=== PATIENT | male | born 1970 | race Caucasian/White ===

== ENCOUNTER 2021-04-01 21:35 | Emergency (ER) | payer BC ==
[~2021-04-01] VITALS: Ht 182.9 cm; Wt 111.1 kg
[2021-04-01] MEDS ORDERED: ASPIRIN81 MG PO (21:46)
[2021-04-01] MEDS ORDERED: MULTI VITAMIN1 EACH PO (21:47)
== END 2021-04-02 01:11 | disposition home or self-care (01) ==
LOC: ED 21:35
DX: I80.02 Phlebitis and thrombophlebitis of superficial vessels of left lower extremity (principal); Z79.82 Long term (current) use of aspirin; Z79.899 Other long term (current) drug therapy
CPT/HCPCS: 93971; 99283-25; A9270

== ENCOUNTER 2021-11-16 06:25 | Day surgery (SDC) | payer BC ==
[~2021-11-16] VITALS: Ht 185.4 cm; Wt 117.7 kg
[~2021-11-16 06:25] MED LIST: ASPIRIN81 MG PO; MAGNESIUM250 M1 PO; MULTI VITAMIN1 EACH PO; OMEPRAZOLE20 MG PO; VITAMIN B125000 MCG PO; VITAMIN D3125 MC3 PO; VITAMIN K240 MCG PO
[2021-11-16] MEDS ORDERED: OMEGA 3 1,0001 EACH PO (06:48)
--- NOTE | 2021-11-16 07:57 | NUR ---
11/16/21 Ryan7 Zahra Drew 0753-PT TO PACU IN LL POSITION. EYES CLOSED. PT RESPONDS TO VERBAL AND TACTILE STIMULI. PT DENIES PAIN AND FALLS QUICKLY BACK TO SLEEP. BREATHING EASY AND UNLABORED. SPO2 >95% ON 2L O2 VIA NC. PT ENCOURAGED TO PASS GAS.
--- NOTE | 2021-11-16 10:36 | OR ---
[facility] [address], [place] [address] Signed DATE OF OPERATION: 11/16/2021 SURGEON: Monique Peterson MD PREOPERATIVE DIAGNOSES: 1. Screening. 2. External hemorrhoids. POSTOPERATIVE DIAGNOSES: 1. Minimal internal and external hemorrhoids. 2. Long redundant colon. PROCEDURE: Colonoscopy biopsy. ESTIMATED BLOOD LOSS: None. INDICATIONS: Pawan is a 51-year-old gentleman, asked to see me for his initial screening colonoscopy. He has no lower GI complaints. There is no family history of colon cancer or polyps. He does describe external hemorrhoids. In the office, I gave him a pamphlet on colonoscopy. We reviewed the test together. There is risk including, but not limited to gas bloating, crampy abdominal pain, bleeding, perforation requiring surgery, and missed diagnosis. We also reviewed the need for IV conscious sedation. He had expressed understanding and wished to proceed. PROCEDURE NOTE: Pawan was taken into our endoscopy suite and placed in the left lateral decubitus position. He was given a total of 6 mg of Versed and 150 mcg of fentanyl to cover the case. A digital rectal exam was performed and this showed minimal external hemorrhoids. He has good sphincter tone. He is a large man and I can barely touch the bottom of his prostate. The adult colonoscope had been introduced and advanced under direct visualization of the camera. He did take some additional sedation and abdominal compression as we advance the scope. It took just a minute to get around the hepatic flexure and down into the cecum itself. His prep was quite excellent. The scope was then slowly withdrawn. We took pictures throughout for photodocumentation. There were no polyps or diverticula noted. He has a long redundant colon. The rectum was unremarkable. Upon retroflexion of the scope, he has very minimal internal hemorrhoid tissue. After this, the gas was suctioned out and colonoscope removed. Overall, Pawan Electronically Signed By: MONIQUE PETERSON MD 11/16/21 1036 PATIENT NAME: PAWAN MURGUIA OPERATIVE REPORT DATE OF : 72 REPORT #: [id number] PHYSICIAN: MONIQUE PETERSON MD PCP: EBONI KHAN MD REPORT IS CONFIDENTIAL AND NOT TO BE RELEASED WITHOUT AUTHORIZATION [facility] [address], [place] [address] Signed tolerated the procedure well. RECOMMENDATIONS: Pawan can return in 10 years for repeat colonoscopy. He may or may not need monitored anesthesia care with propofol in the future. Monique Peterson MD ALB/MODL /[id number] cc: MD oMnique Thomas MD Copies: EBONI KHAN DMD, ANDREW L MD ~ Electronically Signed By: MONIQUE PETERSON MD 11/16/21 1036 PATIENT NAME: PAWAN MURGUIA OPERATIVE REPORT DATE OF : 72 REPORT #: [id number] PHYSICIAN: MONIQUE PETERSON MD PCP: EBONI KHAN MD REPORT IS CONFIDENTIAL AND NOT TO BE RELEASED WITHOUT AUTHORIZATION
--- NOTE | 2021-11-16 10:43 | NUR ---
PT ALERT, ORIENTED AND SUPPORTED BY HIS EDUARDO. PT HERE FOR FIRST SCOPE-ALL QUESTIONS ASKED ANSWERED. GOOD VISIT, WILL REMAIN FOR DC. PT REQUESTED PRAYER, WILL FOLLOW NEEDED
== END 2021-11-16 08:47 | disposition home or self-care (01) ==
LOC: OPS 06:25 → DS 06:25 → OPS 07:30
PROVIDERS: ATTEND Colon & Rectal Surgery
DX: Z12.11 Encounter for screening for malignant neoplasm of colon (principal); Q43.8 Other specified congenital malformations of intestine; K64.4 Residual hemorrhoidal skin tags; K64.8 Other hemorrhoids; K21.9 Gastro-esophageal reflux disease without esophagitis; E66.9 Obesity, unspecified; E78.5 Hyperlipidemia, unspecified; Z79.82 Long term (current) use of aspirin; Z79.899 Other long term (current) drug therapy; Z20.822 Contact with and (suspected) exposure to COVID-19
CPT/HCPCS: G0121; 99153; G0500; J2250; J3010; J7121

== ENCOUNTER 2025-02-17 05:45 | Day surgery (SDC) | payer BC ==
[2025-02-02 16:46] VITALS: BP 129/86
[~2025-02-17] VITALS: Ht 185.4 cm; Wt 111.4 kg
--- NOTE | ~2025-02-17 | OR ---
[facility] [address] [place], [place] [address] Draft DATE OF OPERATION: 02/17/2025 SURGEON: Holden Epps DPM PREOPERATIVE DIAGNOSES: 1. Hammertoe, left second digit. 2. Osteophyte, left fifth digit. 3. Tendon contracture, left foot. TURF MANAGER SURGEON: Sarah White DPM. ANESTHESIA: IV general with local block left foot. HEALTHCARE CUSTOMER SERVICE: Allison Leahy CRNA SPECIMEN TO PATHOLOGY: None. PROCEDURES: 1. Hammertoe correction with proximal interphalangeal joint fusion, left second digit. 2. Osteophyte excision, left fifth digit. 3. Extensor tenotomy of left foot, extensor tendon for left second digit. DESCRIPTION OF PROCEDURE: The patient was brought to the operating room and placed on the table in the supine position. Anesthesia Department administered IV sedation, after which a local block was given to the left foot using a total of 12 mL 1:1 mixture, 2% lidocaine plain and 0.5% ropivacaine plain. The left leg and foot was then prepped and draped in the usual sterile manner and an Esmarch was used for hemostasis. Attention was initially directed to the dorsum of the left foot. The extensor tendon was extremely tight for left second digit. Therefore, a tenotomy was necessary for adequate correction. This was performed via a small incision next to the tendon about 3 cm proximal to the MTPJ, then a 64 blade was used to release the tendon. Attention was then directed to the dorsal left second digit PIPJ where a transverse elliptical incision was made with the skin ellipse removed over the joint. The fascia PATIENT NAME: MARIELOS MURGUIA OPERATIVE REPORT DATE OF : 72 REPORT #: [id number] PHYSICIAN: HOLDEN EPPS DPM PCP: JERRY CASTRO PAC REPORT IS CONFIDENTIAL AND NOT TO BE RELEASED WITHOUT AUTHORIZATION [facility] [address] [place], [place] [address] Draft and extensor tendon was exposed. A transverse incision was made through the tendon and joint capsule to open the joint, then reflected proximally to expose the head of the proximal phalanx, which was then resected using power instrumentation. At this time, attention was directed to the base of the intermediate phalanx and power instrumentation then used to resect the cartilage and a thin layer of bone from the base of the intermediate phalanx exposing raw bone for fusion at this site. A hole was then drilled into the proximal phalanx longitudinally and into the intermediate phalanx longitudinally for placement of the implant, the implant was then placed and the toe positioned securing the implant. The surgical site was then irrigated with normal saline. Then, the extensor tendon and joint capsule closed over the fusion site using 4-0 Vicryl. The skin then closed using 5-0 nylon monofilament suture. Attention then directed to the left fifth digit where a small corn lesion was present adjacent to the medial aspect of the toenail. A small incision 1 cm in length made directly over the hyperkeratotic lesion deep to bone. Then, soft tissues were reflected dorsally and plantarly to expose the bony prominence at this site, which was then resected using hand instrumentation. The surgical site was then irrigated with normal saline and closed using 5-0 nylon monofilament suture. The tenotomy site also closed with 5-0 nylon monofilament suture. Dressings applied consisting of Adaptic, Betadine-soaked gauze, Flexicon, and dry gauze with Coban to provide mild compression as well as to splint the position to the second digit. INTRAOPERATIVE COMPLICATIONS: None. ESTIMATED BLOOD LOSS: Less than 5 mL. Holden Epps DPM DFB/MODL /[id number] PATIENT NAME: MARIELOS MURGUIA OPERATIVE REPORT DATE OF : 72 REPORT #: [id number] PHYSICIAN: HOLDEN EPPS DPM PCP: JERRY CASTRO PAC REPORT IS CONFIDENTIAL AND NOT TO BE RELEASED WITHOUT AUTHORIZATION [address] [place] [address] Draft Copies: ~ PATIENT NAME: MARIELOS MURGUIA OPERATIVE REPORT DATE OF : 72 REPORT #: [id number] PHYSICIAN: HOLDEN EPPS DPM PCP: JERRY CASTRO PAC REPORT IS CONFIDENTIAL AND NOT TO BE RELEASED WITHOUT AUTHORIZATION
[~2025-02-17 05:45] MED LIST changes: +COD LIVER OIL1 EAC2 PO; +ELIQUIS5 MG PO; +KLOR-CON 88 MEQ PO; +LACTATED RINGER'S 1,000 ML IV SCH; +MOTRIN IB200 MG PO; +OMEGA 3 1,0001 EACH PO; +OMEGA 3 FISH O1 EACH PO; +PERCOCET 7.5-31 EACH PO; +TYLENOL EXTRA500 MG PO
[2025-02-17 06:00] VITALS: BP 166/70
[2025-02-17] MEDS ORDERED: ZITHROMAX250 MG PO (06:03)
[2025-02-17] MEDS ORDERED: DEXAMETHASONE SOD PHOS 4 MG/ML VIAL ONE (06:26)
[2025-02-17] MEDS ORDERED: Ropivacaine HCl 0.5% 30 ML VIAL ONE (06:27)
[2025-02-17] MEDS ORDERED: LIDOCAINE HCL 2% 20 ML MDV ONE (06:27)
[2025-02-17] MEDS ORDERED: MIDAZOLAM HCL 2 MG/2 ML VIAL ONE (06:58)
[2025-02-17] MEDS ORDERED: LIDOCAINE HCL 1% 5 ML SDV INJ ONE (07:00)
[2025-02-17] MEDS ORDERED: IBLOOD GLUCOSE TEST STRIP 1 EA TEST VI PRN (07:00)
[2025-02-17] MEDS ORDERED: CEFAZOLIN SODIUM 1 GM/10 ML SYR IV SCH (07:00)
--- NOTE | 2025-02-17 07:16 | NUR ---
PT NOT AVAILABLE FOR VISIT. PROVIDED PRAYER.
[2025-02-17] MEDS ORDERED: GLYCOPYRROLATE 1 MG/5 ML MDV ONE (07:34)
[2025-02-17] MEDS ORDERED: PHENYLEPHRINE HCL 10 MG/ML VIAL ONE (07:34)
[2025-02-17] MEDS ORDERED: LIDOCAINE HCL 4% 5 ML AMP ONE (07:34)
--- NOTE | 2025-02-17 08:46 | NUR ---
02/17/25 0846 Jyoti Myers 0809-PT ARRIVES TO PACU, VIA STRETCHER, PT NOT RESPONISVE TO NOXIOUS STIMULI, NPA IN PLACE, RR EVEN AND UNLABORED. PT'S BP LOW, ANESTHESIA AWARE AND AT BEDSIDE, ALL OTHER VSS ON 10L VIA MASK. PT'S LT FOOT ELEVATED ON PILLOW AND ICE PACK APPLIED. 0818-PT GIVEN IV MEDICATION FOR LOW BP BY ANESTHESIA, BP IMPROVED. 0835-VENDING SERVICE TECHNICIAN AT BEDSIDE FOR POST OP X-RAY OF LT FOOT. 0838-PT RESPONSIVE TO TACTILE STIMULI AND AWAKENS, NPA REMOVED. HOB RAISED PER PT REQUEST. PT TITRATED TO RA, VS REMAIN STABLE. PT DENIES PAIN OR NAUSEA, FALLS BACK TO SLEEP EASILY, RR EVEN AND UNLABORED.
[2025-02-17 09:19] VITALS: BP 100/64
== END 2025-02-17 09:40 | disposition home or self-care (01) ==
LOC: DS 05:45
PROVIDERS: ATTEND Podiatrist Foot Surgery
PROC: 0LNW0ZZ Release Left Foot Tendon, Open Approach (ICD-10-PCS; principal; 2025-02-17 07:00)
PROC: 0YBN0ZZ Excision of Left Foot, Open Approach (ICD-10-PCS; 2025-02-17 07:00)
DX: M20.42 Other hammer toe(s) (acquired), left foot (principal); M25.775 Osteophyte, left foot; M62.472 Contracture of muscle, left ankle and foot; F17.210 Nicotine dependence, cigarettes, uncomplicated; Z86.718 Personal history of other venous thrombosis and embolism; Z79.01 Long term (current) use of anticoagulants
CPT/HCPCS: 73630; J0690; J1100; J2250; J2371; J2704; J2795; J7121

== ENCOUNTER 2025-05-19 06:55 | Day surgery (SDC) | payer BC ==
[~2025-05-19] VITALS: Ht 182.9 cm; Wt 102.0 kg
--- NOTE | ~2025-05-19 | OR ---
[facility] [address] [place], [place] [address] Draft DATE OF OPERATION: 05/19/2025 SURGEON: Holden Epps DPM PREOPERATIVE DIAGNOSES: Hammertoe contracture, right 2nd and 4th digits; tendon contracture, right 2nd and 4th digits; and plantar fascia fibromatosis, bilateral foot. ACTING PROFESSOR SURGEON: Sarah White DPM. ANESTHESIA: IV general with local block, right foot. SKIN FITTER: Suhas Gutierrez. SPECIMEN TO PATHOLOGY: None. PROCEDURES: 1. Hammertoe correction, right 2nd and 4th digits. 2. Tendon release, dorsal right foot, two sites. 3. Plantar fibroma injection, bilateral foot. DESCRIPTION OF PROCEDURE: The patient was brought to the operating room and placed on the table in the supine position. Anesthesia Department administered IV sedation, after which a local block was given to the right foot using a total of 7 mL of 1:1 mixture, 2% lidocaine plain and 0.5% ropivacaine plain. At this time, injection was also given to the foot bilateral for the plantar fibroma lesions, three different sites, right foot with a total of 1.5 mL and one site of plantar left foot with a total of 0.5 mL of Kenalog 40. The right leg and foot was then prepped and draped in the usual sterile manner and an Esmarch was used for hemostasis. Attention was initially directed to the dorsum of the right foot, the extensor tendons to the right 2nd and 4th toes were noted to be extremely tight and contributing to the hammertoe deformities. A tendon release was performed for the extensor digitorum longus tendon traveling to the 2nd and 4th toes at a level about 2 cm proximal to the MTPJ for PATIENT NAME: MARIELOS MURGUIA OPERATIVE REPORT DATE OF : 72 REPORT #: [id number] PHYSICIAN: HOLDEN EPPS DPM PCP: JERRY CASTRO PAC REPORT IS CONFIDENTIAL AND NOT TO BE RELEASED WITHOUT AUTHORIZATION [facility] [address] [place], [place] [address] Draft each tendon slip. Attention was then directed to the dorsal PIPJ for the right 2nd digit where a transverse elliptical incision was made over the PIPJ. The ellipse of skin was removed and the incision deepened to open the joint, transecting the extensor tendon and the joint capsule. Soft tissues then reflected proximally to expose the head of the proximal phalanx, which was then resected using power instrumentation. The power instrumentation also used to remove the cartilaginous surface to the base of the intermediate phalanx of the hammertoe implant. Instrumentation was then used to create the hole within the proximal phalanx and intermediate phalanx to accept the implant. Implant was then placed and secured providing adequate alignment and stability to the toe. The surgical site was irrigated with copious amounts of normal saline. The extensor tendon then reapproximated with 4-0 Vicryl and skin closed using 5-0 nylon monofilament suture. Hammertoe correction for the right 4th digit performed in an identical manner without additions or deletions. The plantar fibroma injections were performed with the preoperative injection and therefore was already accomplished. At this time, intraoperative fluoroscopy was used to check the position and alignment to the toes and the implant, the implant was noted to be at an angle within the proximal phalanx and appeared to be exiting the lateral cortex of the proximal phalanx. However, due to difficulty in removing the implant as well as the fact that the alignment and position to the toe as well as stability to the toe appeared to be adequate, it was deemed appropriate at this point to leave the implant as is. ESTIMATED BLOOD LOSS: Less than 5 mL. Holden Epps DPM DFB/MODL /[id number] PATIENT NAME: MARIELOS MURGUIA OPERATIVE REPORT DATE OF : 72 REPORT #: [id number] PHYSICIAN: HOLDEN EPPS DPM PCP: JERRY CASTRO PAC REPORT IS CONFIDENTIAL AND NOT TO BE RELEASED WITHOUT AUTHORIZATION [facility] [address] [place] [address] [place] [address] Draft Copies: ~ PATIENT NAME: MARIELOS MURGUIA OPERATIVE REPORT DATE OF : 72 REPORT #: [id number] PHYSICIAN: HOLDEN EPPS DPM PCP: JERRY CASTRO PAC REPORT IS CONFIDENTIAL AND NOT TO BE RELEASED WITHOUT AUTHORIZATION
[~2025-05-19 06:55] MED LIST changes: +DEXAMETHASONE SOD PHOS 4 MG/ML VIAL ONE; +FISH OIL 1,0001 EAC7 PO; +LIDOCAINE HCL 2% 20 ML MDV ONE; +MAGNESIUM500 MG PO; +Ropivacaine HCl 0.5% 30 ML VIAL ONE; +VAZALORE81 MG PO; +VITAMIN B12500 MCG PO; +VITAMIN D250 MCG PO; +ZITHROMAX250 MG PO
[2025-05-19] MEDS ORDERED: LIDOCAINE HCL 1% 5 ML SDV INJ ONE (07:00)
[2025-05-19] MEDS ORDERED: CEFAZOLIN SODIUM 1 GM in SODIUM CHLORIDE 0.9% 100 ML IV SCH (07:00)
[2025-05-19] MEDS ORDERED: IBLOOD GLUCOSE TEST STRIP 1 EA TEST VI PRN ×2 (07:00→11:15)
[2025-05-19 07:10] VITALS: BP 114/71
[2025-05-19] MEDS ORDERED: TRIAMCINOLONE ACET 40 MG/ML VIAL 1 ML ONE ×2 (07:22→09:25)
[2025-05-19] MEDS ORDERED: KETAMINE in NS 50 MG/5 ML SYR ONE (09:26)
[2025-05-19] MEDS ORDERED: KETOROLAC TROMETHAMINE 30 MG/ML VIAL ONE (09:27)
[2025-05-19] MEDS ORDERED: LIDOCAINE HCL 2% 5 ML SDV ONE (09:27)
[2025-05-19] MEDS ORDERED: ACETAMINOPHEN 1,000 MG/100 ML VIAL ONE (09:27)
[2025-05-19] MEDS ORDERED: DEXAMETHASONE SOD PHOS 4 MG/ML VIAL ONE (09:27)
[2025-05-19] MEDS ORDERED: NALOXONE HCL 0.4 MG SYR IV PRN (11:15)
[2025-05-19] MEDS ORDERED: fentaNYL citrate 50 MCG/ML SDV IV PRN (11:15)
[2025-05-19 12:17] VITALS: BP 107/74
--- NOTE | 2025-05-19 13:38 | NUR ---
05/19/25 [address] 1112- PT ARRIVES TO PACU WITH A NATURAL AIRWAY. PT HEAD ADJUSTED. BREATHING IS EVEN AND UNLABORED. MONITORS PUT IN PLACE. VSS. BEDSIDE REPORT RECEIVED FROM ELEN LIM. SURGICAL SITE IS CDI. LR INFUSING. PT IS NON REACTIVE AT THIS TIME. 1114- 6L OF O2 PUT IN PLACE BY ELEN LIM. 1119-PT WAKES TO VERBAL STIMULI. O2 REMOVED. PT ORIENTED TO PACU. PT SAYS "YAY" WHEN TOLD PROCEDURE WAS COMPLETE. HOB INCREASED PER PT REQUEST. PT DENIES PAIN IN THE FOOT, JUST HIS BACK PAIN. 1127- XRAY WITH PT. 1135- PT REPORTS NEEDING TO USE THE RESTROOM. URINAL PROVIDED. 1140- PT IS ABLE TO VOID 450ML OF CLEAR YELLOW URINE. 1145- BOOT PUT IN PLACE ON R FOOT. 1150-PT SITTING UP AND SIPPING ON WATER. NO APPARENT SIGNS OF DISTRESS. PT TALKING WITH RN. DC INSTRUCTIONS GONE OVER AND EDUCATION GIVEN. ALL QUESTIONS AND CONCERNS ANSWERED. 1159- PT SITTING UP AT THE SIDE OF THE BED. PT DENIES DIZZINESS. PT IS ABLE TO GET DRESSED INDEPENDENTLY WITH NO ISSUES. 1205- PT IS DONE GETTING DRESSED. IV REMOVED. PT IS ABLE TO TRANSFER TO HOSPITAL WHEELCHAIR WITH NO ISSUES. PT HAS ALL BELONGINGS AND PAPERWORK. PT PROPELLED OUT OF DAY SURGERY AT THIS TIME.
== END 2025-05-19 12:05 | disposition home or self-care (01) ==
LOC: DS 06:55
PROVIDERS: ATTEND Podiatrist Foot Surgery
PROC: 0SQP0ZZ Repair Right Toe Phalangeal Joint, Open Approach (ICD-10-PCS; 2025-05-19)
PROC: 0LNV0ZZ Release Right Foot Tendon, Open Approach (ICD-10-PCS; principal; 2025-05-19 08:15)
DX: M20.41 Other hammer toe(s) (acquired), right foot (principal); M62.471 Contracture of muscle, right ankle and foot; M72.2 Plantar fascial fibromatosis
CPT/HCPCS: 01480; 73620; 73630; C1713; C1776; J0131; J0690; J1100; J1885; J2003; J2405; J2704; J2795; J3301; J3490; J7121